=== PATIENT | female | born 1940 | race Caucasian/White ===

== ENCOUNTER → 2016-11-20 | Outpatient (CLI) | payer OTHER, BC ==
--- NOTE | ~2016-11-20 | EKG ---
[address] [place] [address] ELECTROCARDIOGRAM REPORT Name: PHYLLIS MARQUIS Room #: REG [facility]#: [id number] Admission: 11/20/16 Attend Phys: Yvan Beckham MD Discharge: Date of : 42 Report #: [id number] THIS REPORT FOR: //name// [facility] Test Date: 2016-11-20 Test Time: 13:11:31 Pat Name: PHYLLIS MARQUIS Department: Room: Gender: F Stumper Feller: Renu LOVELACE : 1940 Requested By: Yvan Beckham Order Number: [id number] MD: Titi Heredia Measurements Intervals [place] Rate: 70 P: 39 NC: 169 QRS: -3 QRSD: 93 T: 37 QT: 399 QTc: 431 Interpretive Statements Sinus rhythm No significant abnormality No previous ECG available for comparison Electronically Signed On 11-21-2016 8:58:43 CDT by Titi Heredia [email or web address] <ELECTRONICALLY SIGNED> By: Titi Heredia MD, [facility] 11/21/16 0858 1311 1311 Titi Heredia MD, FACC /EPI
== END ==
LOC: RAD 12:34
DX: Z01.818 Encounter for other preprocedural examination (principal); M17.12 Unilateral primary osteoarthritis, left knee